=== PATIENT | male | born 1995 | race Caucasian/White ===

== ENCOUNTER 2020-03-18 11:51 | Emergency (ER) | payer OTHER ==
[2020-03-18 12:23] LABS: CHLORIDE,CL 104 mEq/L (98-106); SODIUM,NA 143 mEq/L (136-145)
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
== END 2020-03-18 13:05 | disposition home or self-care (01) ==
LOC: CC.ED 11:51
DX: R55 Syncope and collapse (principal)
CPT/HCPCS: 36415; 70450; 71046; 72125; 72170; 80053; 82150; 83605; 85025; 85610; 99284-25